=== PATIENT | female | born 1990 | race Caucasian/White ===

== ENCOUNTER 2016-11-30 20:30 | Emergency (ER) | payer OTHER ==
[~2016-11-30] VITALS: Ht 165.1 cm; Wt 100.0 kg
[2016-11-30 20:30] VITALS: BP 134/66
[~2016-11-30 20:30] MED LIST: ACET50TA PO; IBUP80TA PO; prenatal vitamins PO
== END 2016-11-30 23:40 | disposition left against medical advice (07) ==
LOC: M ED 20:30
DX: R10.9 Unspecified abdominal pain (principal); Z53.21 Procedure and treatment not carried out due to patient leaving prior to being seen by health care provider

== ENCOUNTER → 2017-01-07 | Outpatient (REF) | payer OTHER | LOC: M LAB REF 17:09 | PROVIDERS: ATTEND Specialist | DX: Z11.3 Encounter for screening for infections with a predominantly sexual mode of transmission (principal) ==

== ENCOUNTER → 2017-01-07 | Outpatient (REF) | payer OTHER | LOC: M LAB REF 17:43 | PROVIDERS: ATTEND Specialist | DX: Z12.4 Encounter for screening for malignant neoplasm of cervix (principal) ==

== ENCOUNTER → 2017-01-26 | Outpatient (CLI) | payer OTHER ==
--- NOTE | 2017-01-26 20:54 | REP ---
Clinical: Cholelithiasis and abdominal pain Technique: Mao scale ultrasound using curved array transducer. Findings: The liver demonstrates mild fatty infiltration without focal hepatic lesion identified. The spleen is minimally enlarged measuring 11.6 x 5.6 x 10.6 cm without focal splenic lesion identified. The pancreas is normal in appearance and echogenicity. Gallbladder demonstrates multiple mobile gallstones without wall thickening or pericholecystic fluid. No sonographic Vo's sign was elicited during examination. Common bile duct is upper limits of normal at 7.1 mm diameter. Kidneys are without hydronephrosis. Right kidney measures 12.4 x 4.7 x 3.9 cm; left kidney measures 12.2 x 5.3 x 3.8 cm. No ascites. Visualized portions of the abdominal aorta normal measuring up to 2.3 mm maximal diameter. Impression: 1. Cholelithiasis without sonographic evidence for acute cholecystitis. Common bile duct is upper limits of normal at 7.1 mm diameter. 2. Spleen is minimally enlarged but otherwise unremarkable. 3. Mild fatty infiltration to the liver without focal hepatic lesion. Signed by Froilan De Jesus MD 01/26/2017 05:45 P
== END ==
LOC: M RAD 08:13
PROVIDERS: ATTEND Family Medicine
DX: K80.00 Calculus of gallbladder with acute cholecystitis without obstruction (principal); K76.0 Fatty (change of) liver, not elsewhere classified

== ENCOUNTER 2017-03-11 09:22 | Day surgery (SDC) | payer OTHER ==
[2017-03-11] MEDS ORDERED: LIDOCAINE 1% SDV 5 ML VIAL SQ (09:30)
[2017-03-11 10:09] LABS: CONTROL LINE UCG INT CTR LINE PRESENT; URINE PREG TEST NEGATIVE (NEGATIVE)
[2017-03-11] MEDS: LR 1,000 ML IV (10:24)
[2017-03-11 10:26] LABS: ANION GAP 8 MEQ/L (8-16); BLOOD UREA NITROGEN 12 MG/DL (7-18); CALCIUM LEVEL 8.9 MG/DL (8.5-10.1); CARBON DIOXIDE LEVEL 23 MEQ/L (21-32); CHLORIDE LEVEL 107 MEQ/L (98-107); CREATININE FOR GFR 0.86 MG/DL (0.55-1.30); GLOMERULAR FILTRATION RATE > 60.0 (>60); GLUCOSE, FASTING 107 MG/DL (70-100); POTASSIUM SERUM 3.9 MEQ/L (3.5-5.1); SODIUM LEVEL 138 MEQ/L (136-145)
[2017-03-11] MEDS ORDERED: fentaNYL 100 MCG/2 ML INJECTION (J3010) As Ordered ×2 (11:52→12:17)
[2017-03-11] MEDS ORDERED: MIDAZOLAM INJ 2 MG/2 ML VIAL (J2250) As Ordered (11:53)
[2017-03-11] MEDS ORDERED: KETOROLAC 60 MG/2 ML VIAL (J1885) As Ordered (12:19)
[2017-03-11] MEDS ORDERED: ONDANSETRON 4MG/2ML VIAL (J2405) As Ordered (12:19)
[2017-03-11] MEDS ORDERED: dexameTHASONE 4 MG/ML 1ML VIAL (J1100) As Ordered (12:19)
[2017-03-11] MEDS ORDERED: METOCLOPRAMIDE INJ 10MG/2ML VIAL (J2765) As Ordered (12:20)
[2017-03-11] MEDS ORDERED: LIDOCAINE 2% INJ 100 MG/5 ML SDV (FOR ANES.) As Ordered (12:20)
[2017-03-11] MEDS ORDERED: PROPOFOL 200 MG/20 ML VIAL As Ordered (12:20)
[2017-03-11] MEDS ORDERED: ROCURONIUM BROMIDE 50 MG/5 ML VIAL As Ordered (12:20)
[2017-03-11] MEDS: LIDOCAINE W/EPINEPHRINE 1% 20ML VIAL As Ordered (12:35)
[2017-03-11] MEDS: PERCOCET 5MG/325MG TAB PO (13:11)
[2017-03-11] MEDS ORDERED: MORPHINE 10 MG/ML 1ML VIAL IV (13:15)
[2017-03-11] MEDS ORDERED: LR 1,000 ML IV (13:15)
[2017-03-11] MEDS ORDERED: NORCO, ANEXSIA 5/325MG TABLET (HYDROcodone/ACETAMINOPHEN) PO (13:15)
[2017-03-11] MEDS ORDERED: ONDANSETRON 4MG/2ML VIAL (J2405) IV (13:15)
[2017-03-11] MEDS ORDERED: METOCLOPRAMIDE INJ 10MG/2ML VIAL (J2765) IV (13:15)
[2017-03-11] MEDS ORDERED: fentaNYL 100 MCG/2 ML INJECTION (J3010) IV (13:15)
== END 2017-03-11 15:00 | disposition home or self-care (01) ==
LOC: M SDC 09:22
DX: K80.10 Calculus of gallbladder with chronic cholecystitis without obstruction (principal)
CPT/HCPCS: 47562